=== PATIENT | female | born 2005 | race Caucasian/White ===

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

== ENCOUNTER 2024-02-19 01:23 | Outpatient (CLI) | payer BC, SELFPAY ==
--- OUTSIDE RECORDS SUMMARY | 2024-02-19 01:35 | XMS_ITS | Referral Summary ---
Author Organization [facility] Address [address] [place] [address] Care Team Providers Care Collar Band Creaser Name Role Phone Janet Barillas MD Primary Care Provide r Encounters Date Type Department Care Team Description 12/03/2023 Lab Requisition [facility] Pathology & Laboratory Medicine - [address] [address] Outr Resulting Lab, Provider from Last 3 Months Allergies No known active allergies Medications No known medications Social History Tobacco Use Types Packs/Day Years Used Date Smoking Tobacco: Never Assessed Sex and Gender Information Value Date Recorded Sex Assigned at Not on file Gender Identity Not on file Sexual Orientation Not on file Last Filed Vital Signs Vital Sign Reading Time Taken Comments Blood Pressure - - Pulse - - Temperature - - Respiratory Rate 14 07/30/20122101 EDT Oxygen Saturation 99% 07/30/20122101 EDT Inhaled Oxygen Concentration - - Weight 27.2 kg (60 lb) 07/30/20122101 EDT Height - - Body Mass Index - - Plan of Treatment Not on file Procedures Procedure Name Priority Date/Time Associated Diagnosis Comments QUANTIFERON INTERPRETATION (PERFORMABLE) Today 12/02/2023 15:30 EDT QUANTIFERON MITOGEN (PERFORMABLE) Today 12/02/2023 15:30 EDT QUANTIFERON TB2 (PERFORMABLE) Today 12/02/2023 15:30 EDT QUANTIFERON TB1 (PERFORMABLE) Today 12/02/2023 15:30 EDT QUANTIFERON NIL (PERFORMABLE) Today 12/02/2023 15:30 EDT QUANTIFERON TB GOLD PLUS Routine 12/02/2023 15:30 EDT from Last 3 Months Results * QUANTIFERON MITOGEN (PERFORMABLE) (12/02/2023 15:30 EDT) Blood VENOUS BLOOD / Unknown 12/02/2023 15:30 EDT 12/03/2023 19:39 EDT Provider Outr Resulting Lab IMMUNOLOGY A ND SEROLOGY ORDERABLES Performing Organization Address [facility] Co de Phone Number [facility] [address] [place], [place] [phone] * QUANTIFERON TB2 (PERFORMABLE) (12/02/2023 15:30 EDT) Blood VENOUS BLOOD / Unknown 12/02/2023 15:30 EDT 12/03/2023 19:39 EDT Provider Outr Resulting Lab IMMUNOLOGY A ND SEROLOGY ORDERABLES Performing Organization Address [facility] Co de Phone Number [facility] [address] [place] [phone] * QUANTIFERON TB1 (PERFORMABLE) (12/02/2023 15:30 EDT) Blood VENOUS BLOOD / Unknown 12/02/2023 15:30 EDT 12/03/2023 19:39 EDT Provider Outr Resulting Lab IMMUNOLOGY A ND SEROLOGY ORDERABLES Performing Organization Address [facility] de Phone Number [facility] [address] [place] [phone] * QUANTIFERON NIL (PERFORMABLE) (12/02/2023 15:30 EDT) Blood VENOUS BLOOD / Unknown 12/02/2023 15:30 EDT 12/03/2023 19:39 EDT Provider Outr Resulting Lab IMMUNOLOGY A ND SEROLOGY ORDERABLES Performing Organization Address [facility] de Phone Number [facility] [address] [place], [place] [phone] * (ABNORMAL) QUANTIFERON INTERPRETATION (PERFORMABLE) (12/02/2023 15:30 EDT) Quantiferon Interpretation Positive( A) Negative 12/04/2023 12:44 EDT [facility] Comment:Interferon gamma res ponse to M. tuberculosis antigens detected, suggesting infection with M. tuberculosis. Positive results in patients at low-risk for tuberculosis should be interpreted with caution and repeat testing on a new sample should be considered. False positive results may occur in patients with prior infection with M. marinum, M. szulgai, or M. kansasii. TB1 Ag minus Nil 0.43 IU/ml 12/04/19 12:44 EDT [facility] TB2 Ag minus Nil 0.34 IU/mL 12/04/19 12:44 EDT [facility] Blood VENOUS BLOOD / Unknown 12/02/2023 15:30 EDT 12/04/2023 11:31 EDT Provider Outr Resulting Lab IMMUNOLOGY A ND SEROLOGY ORDERABLES [facility] [address] [place] [address] from Last 3 Months Care Teams Collar Band Creaser Relationship Specialty Start Date End Date Janet Barillas MD [address] [place] [phone] PCP - General 07/30/12
--- OUTSIDE RECORDS SUMMARY | 2024-02-19 01:35 | XMS_ITS | Encounter Summary ---
Author Organization [facility] Address [address] [place] [address] Care Team Providers Care Management Trainee Marketing Name Role Phone Janet Barillas MD Primary Care Provide r Reason for Visit * Reason Comments Laceration laceration to inferi or base of right fourth toe, bleeding controlled. Also superficial avulsion distal to laceration. Does not appear to be full thickness. Will probably need repair. Injury secondary to kicking door. Toe not grossly deformed or swollen. A&O. Respirations unlabored. Skin warm & dry. NAD. Encounter Details Date Type Department Care Team (Late st Contact Info) Description 07/30/2012 20:56 EDT - 07/30/2012 23:34 EDT Emergency [facility] Emergency Department - [address] [id number] Kelsey Brooke PA-C [address] [facility], Level 1 [place] [address] Emergency, MD Janusz Laceration of fourth toe of right foot (Primary Dx) Discharge Disposition: Home or Self Care Social History Tobacco Use Types Packs/Day Years Used Date Smoking Tobacco: Never Assessed Sex and Gender Information Value Date Recorded Sex Assigned at Not on file Gender Identity Not on file Sexual Orientation Not on file documented as of this encounter Last Filed Vital Signs Vital Sign Reading Time Taken Comments Blood Pressure - - Pulse - - Temperature - - Respiratory Rate 14 07/30/2012 2102 EDT Oxygen Saturation 99% 07/30/2012 210 EDT Inhaled Oxygen Concentration - - Weight 27.2 kg (60 lb) 07/30/2012 210 EDT Height - - Body Mass Index - - documented in this encounter Discharge Instructions * Discharge Instructions* Kelsey Brooke PA - 07/30/2012 23:24 EDT 5 sutures to be removed in 7-10 days Wound care instructions given Tylenol for pain as needed Watch area for redness, swelling, drainage * Attachments The following attachments cannot be sent through Care Everywhere. * LACERATION: AFTER YOUR CHILD'S VISIT TO THE EMERGENCY ROOM (TURKISH) * CARE OF CLOSED WOUNDS: AFTER YOUR CHILD'S VISIT (TURKISH) documented in this encounter Discharge Disposition Disposition Code Departure Means Destination Home or Self Care Walk-out documented in this encounter ED Notes * Reynold Apple RN - 07/30/2012 4953 EDT Pt d/c ambulatory with a normal gait and in NAD. Pt d/c with family. Pt provided with instructions.Resp unlabored. Skin warm and dry. Pt AO. Patients family asked to keep an eye for signs of infection and to f/u with pcp for suture removal * Reynold Apple RN - 07/30/2012 2298 EDT Patient to X ray * Kelsey Brooke PA - 07/30/20125 EDTAssociated Order(s): LACERATION REPAIR Images from the original note were not included. DOS: 07/30/2012 Chief Complaint Patient presents with ??? Laceration laceration to inferior base of right fourth toe, bleeding controlled. Also superficial avulsion distal to laceration. Does not appear to be full thickness. Will probably need repair. Injury secondaryto kicking door. Toe not grossly deformed or swollen. A&O. Respirations unlabored. Skin warm & dry. NAD. The patient is a 7 y.o. female who presents today with Laceration HPI Comments: 7 y/o female pt here with laceration to 4th toe, plantar aspect. Pt with 2/10 for pain. Per pt was playing with door with sister and got her toe caught under door. Pt denies right anklepain. Bleeding is controlled upon arrival. The history is provided by the patient. Laceration Review of Systems Constitutional: Negative for activity change. Musculoskeletal: Right 4 th toe injury Skin: Positive for wound. Laceration to right 4 th toe Neurological: Negative for numbness. No past medical history on file. No past surgical history on file. No Known Allergies History Substance Use Topics ??? Smoking status: Not on file ??? Smokeless tobacco: Not on file ??? Alcohol Use: Not on file No family history on file. Vital Signs Heart Rate: 94 BPM Resp: 14 SpO2: 99 % Physical Exam Nursing note and vitals reviewed. Constitutional: She appears well-developed. She is active. Eyes: Pupils are equal, round, and reactive to light. Neck: Normal range of motion. Musculoskeletal: Right ankle: Normal. Feet: Neurological: She is alert. Skin: Skin is warm. Radiology orders: TOES 2 OR MORE VIEWS TOES 2 OR MORE VIEWS Final result not shown here.: Review of x-ray by me no acute fracture seen Laceration Date/Time: 07/30/2012 23:14 Performed by: KELSEY BROOKE Authorized by: KELSEY BROOKE Consent: Verbal consent obtained. Risks and benefits: risks, benefits and alternatives were discussed Consent given by: patient Patient understanding: patient states understanding of the procedure being performed Patient identity confirmed: verbally with patient Time out: Immediately prior to procedure a time out was called to verify the correct patient, procedure, equipment, health support specialist and site/side marked as required. Body area: lower extremity Location details: right fourth toe Laceration length: 0.8 cm Foreign bodies: no foreign bodies Tendon involvement: none Nerve involvement: none Vascular damage: no Anesthesia: local infiltration Local anesthetic: lidocaine 1% without epinephrine Anesthetic total: 2 ml Patient sedated: no Preparation: Patient was prepped and draped in the usual sterile fashion. Irrigation solution: saline Irrigation method: jet lavage Amount of cleaning: standard Debridement: none Degree of undermining: none Skin closure: 5-0 Prolene Number of sutures: 5 Technique: simple Approximation: close Approximation difficulty: simple Dressing: antibiotic ointment Patient tolerance: Patient tolerated the procedure well with no immediate complications. ED Course: A medical screening exam was performed. Pt tolerated treatment well. Disposition: Discharged The patient's pain was managed to an adequate level weighing risk vs. benefit of further medications. Upon departure from the Emergency Department, the patient's pain was 2 on a zero to ten scale. Condition at departure from the Emergency Department: Improved Discharge Prescriptions No Discharge Prescriptions for this patient MDM Number of Diagnoses or Management Options Laceration of fourth toe of right foot: Diagnosis management comments: Right 4th toe fracture, laceration, injury 4 Amount and/or Complexity of Data Reviewed Tests in the radiology section of CPT??: ordered and reviewed Review and summarize past medical records: yes Final diagnoses: Laceration of fourth toe of right foot PCP: MD Aníbal Mcclain 08/11/2012 15:47 * Asif Leiva RN - 07/30/2012 210 EDT Chief Complaint Patient presents with ??? Laceration laceration to inferior base of right fourth toe, bleeding controlled. Also superficial avulsion distal to laceration. Does not appear to be full thickness. Will probably need repair. Injury secondaryto kicking door. Toe not grossly deformed or swollen. A&O. Respirations unlabored. Skin warm & dry. NAD. documented in this encounter Miscellaneous Notes * Scanned Note-Null - [employer] NETWORK ANALYST, SCAN 2 - 08/02/2012 0954 EDT * Scanned Note-Null - [employer] NETWORK ANALYST, SCAN 2 - 07/31/2012 0006 EDT documented in this encounter Plan of Treatment Not on file documented as of this encounter Procedures Procedure Name Priority Date/Time Associated Diagnosis Comments LACERATION REPAIR Routine 08/11/2012 15: 47 EDT TOES 2 OR MORE VIEWS STAT 07/30/2012 22:33 EDT documented in this encounter Results * LACERATION REPAIR (08/11/2012 15:47 EDT) Narrative [facility] EKG - 08/11/2012 15:47 EDT Kelsey Brooke PA ? 08/11/2012 15:47 DOS: 07/30/2012 Chief Complaint Patient presents with ? ? Laceration ??laceration to inferior base of right fourth toe, bleeding controlled. ??Also superficial avulsion distal to laceration. ?? Does not appear to be full thickness. ??Will probably need repair. Injury secondary to kicking door. ??Toe not grossly deformed or swollen. ??A&O. Respirations unlabored. Skin warm & dry. NAD. The patient is a 7 y.o. female who presents today with Laceration HPI Comments: 7 y/o female pt here with laceration to 4th toe, plantar aspect. ??Pt with 2/10 for pain. ??Per pt was playing with door with sister and got her toe caught under door. ??Pt denies right ankle pain. ??Bleeding is controlled upon arrival. The history is provided by the patient. Laceration Review of Systems Constitutional: Negative for activity change. Musculoskeletal: ? Right 4 th toe injury Skin: Positive for wound. ? Laceration to right 4 th toe Neurological: Negative for numbness. No past medical history on file. No past surgical history on file. No Known Allergies History Substance Use Topics ? ? Smoking status: Not on file ? ? Smokeless tobacco: Not on file ? ? Alcohol Use: Not on file No family history on file. Vital Signs Heart Rate: 94 BPM Resp: 14 SpO2: 99 % Physical Exam Nursing note and vitals reviewed. Constitutional: She appears well-developed. She is active. Eyes: Pupils are equal, round, and reactive to light. Neck: Normal range of motion. Musculoskeletal: ? Right ankle: Normal. ? Feet: Neurological: She is alert. Skin: Skin is warm. Radiology orders: TOES 2 OR MORE VIEWS TOES 2 OR MORE VIEWS Final result not shown here.: ? Review of x-ray by me no acute fracture seen Laceration Date/Time: 07/30/2012 23:14 Performed by: KELSEY BROOKE Authorized by: KELSEY BROOKE Consent: Verbal consent obtained. Risks and benefits: risks, benefits and alternatives were discussed Consent given by: patient Patient understanding: patient states understanding of the procedure being performed Patient identity confirmed: verbally with patient Time out: Immediately prior to procedure a time out was called to verify the correct patient, procedure, equipment, health support specialist and site/side marked as required. Body area: lower extremity Location details: right fourth toe Laceration length: 0.8 cm Foreign bodies: no foreign bodies Tendon involvement: none Nerve involvement: none Vascular damage: no Anesthesia: local infiltration Local anesthetic: lidocaine 1% without epinephrine Anesthetic total: 2 ml Patient sedated: no Preparation: Patient was prepped and draped in the usual sterile fashion. Irrigation solution: saline Irrigation method: jet lavage Amount of cleaning: standard Debridement: none Degree of undermining: none Skin closure: 5-0 Prolene Number of sutures: 5 Technique: simple Approximation: close Approximation difficulty: simple Dressing: antibiotic ointment Patient tolerance: Patient tolerated the procedure well with no immediate complications. ED Course: ?? A medical screening exam was performed. Pt tolerated treatment well. Disposition: Discharged The patient's pain was managed to an adequate level weighing risk vs. benefit of further medications. Upon departure from the Emergency Department, the patient's pain was 2 on a zero to ten scale. Condition at departure from the Emergency Department: Improved Discharge Prescriptions No Discharge Prescriptions for this patient MDM Number of Diagnoses or Management Options Laceration of fourth toe of right foot: Diagnosis management comments: Right 4th toe fracture, laceration, injury 4 Amount and/or Complexity of Data Reviewed Tests in the radiology section of CPT??: ordered and reviewed Review and summarize past medical records: yes Final diagnoses: Laceration of fourth toe of right foot PCP: ??MD Aníbal Mcclain ?? 08/11/2012 15:47 Procedure Note Kelsey Brooke, PA - 07/30/2012 22:25 EDT Images from the original note were not included. DOS: 07/30/2012 Chief Complaint Patient presents with ? ? Laceration laceration to inferior base of right fourth toe, bleeding controlled.Also superficial avulsion distal to laceration. Does not appear to befull thickness. Will probably need repair. Injury secondary to kickingdoor. Toe not grossly deformed or swollen. A&O. Respirations unlabored.Skin warm & dry. NAD. The patient is a 7 y.o. female who presents today with Laceration HPI Comments: 7 y/o female pt here with laceration to 4th toe, plantaraspect. Pt with 2/10 for pain. Per pt was playing with door with sisterand got her toe caught under door. Pt denies right ankle pain. Bleedingis controlled upon arrival. The history is provided by the patient. Laceration Review of Systems Constitutional: Negative for activity change. Musculoskeletal: Right 4 th toe injury Skin: Positive for wound. Laceration to right 4 th toe Neurological: Negative for numbness. No past medical history on file. No past surgical history on file. No Known Allergies History Substance Use Topics ? ? Smoking status: Not on file ? ? Smokeless tobacco: Not on file ? ? Alcohol Use: Not on file No family history on file. Vital Signs Heart Rate: 94 BPM Resp: 14 SpO2: 99 % Physical Exam Nursing note and vitals reviewed. Constitutional: She appears well-developed. She is active. Eyes: Pupils are equal, round, and reactive to light. Neck: Normal range of motion. Musculoskeletal: Right ankle: Normal. Feet: Neurological: She is alert. Skin: Skin is warm. Radiology orders: TOES 2 OR MORE VIEWS TOES 2 OR MORE VIEWS Final result not shown here.: Review of x-ray by me no acute fracture seen Laceration Date/Time: 07/30/2012 23:14 Performed by: KELSEY BROOKE Authorized by: KELSEY BROOKE Consent: Verbal consent obtained. Risks and benefits: risks, benefits and alternatives were discussed Consent given by: patient Patient understanding: patient states understanding of the procedure beingperformed Patient identity confirmed: verbally with patient Time out: Immediately prior to procedure a time out was called to verifythe correct patient, procedure, equipment, health support specialist and site/sidemarked as required. Body area: lower extremity Location details: right fourth toe Laceration length: 0.8 cm Foreign bodies: no foreign bodies Tendon involvement: none Nerve involvement: none Vascular damage: no Anesthesia: local infiltration Local anesthetic: lidocaine 1% without epinephrine Anesthetic total: 2 ml Patient sedated: no Preparation: Patient was prepped and draped in the usual sterilefashion. Irrigation solution: saline Irrigation method: jet lavage Amount of cleaning: standard Debridement: none Degree of undermining: none Skin closure: 5-0 Prolene Number of sutures: 5 Technique: simple Approximation: close Approximation difficulty: simple Dressing: antibiotic ointment Patient tolerance: Patient tolerated the procedure well with no immediatecomplications. ED Course: A medical screening exam was performed. Pt tolerated treatment well. Disposition: Discharged The patient's pain was managed to an adequate level weighing risk vs.benefit of further medications. Upon departure from the EmergencyDepartment, the patient's pain was 2 on a zero to ten scale. Condition at departure from the Emergency Department: Improved Discharge Prescriptions No Discharge Prescriptions for this patient MDM Number of Diagnoses or Management Options Laceration of fourth toe of right foot: Diagnosis management comments: Right 4th toe fracture, laceration, injury 4 Amount and/or Complexity of Data Reviewed Tests in the radiology section of CPT??: ordered and reviewed Review and summarize past medical records: yes Final diagnoses: Laceration of fourth toe of right foot PCP: MD Aníbal Mcclain 08/11/2012 15:47 Kelsey Brooke PA-C PROCEDURE/MINOR SURG ICAL ORDERABLES [facility] EKG * TOES 2 OR MORE VIEWS (07/30/2012 22:33 EDT) Anatomical Region Laterality Modality Other 07/30/2012 22:3 3 EDT 07/31/2012 9:33 EDT Narrative 07/31/2012 9:33 EDT TOES 2 OR MORE VIEWS ??Jul 30, 2012 10:33:00 PM Signs and Symptoms/Comments: ??toe injury and pain Comparison: None Findings: Three views of the right 4th toe demonstrate soft tissue swelling, but no fracture is identified. The alignment and mineralization are normal in this skeletally immature patient. No radiopaque foreign body identified. The findings were discussed by Dr. Jani Campos with Dr. EDWARDO DUVALL shortly after completion of the study. I have personally reviewed the images and the above interpretation and agree with the findings. Procedure Note Daily, Jani Betancourt MD - 07/31/2012 TOES 2 OR MORE VIEWS Jul 30, 2012 10:33:00 PM Signs and Symptoms/Comments: toe injury and pain Comparison: None Findings: Three views of the right 4th toe demonstrate soft tissue swelling, but no fracture is identified. The alignment and mineralization are normal in this skeletally immature patient. No radiopaque foreign body identified. The findings were discussed by Dr. Jani Delgado Daily with Dr. EDWARDO DUVALL shortly after completion of the study. I have personally reviewed the images and the above interpretation and agree with the findings. Kelsey Brooke PA-C IMG DIAGNOSTIC IMAGI NG ORDERABLES documented in this encounter Visit Diagnoses Diagnosis Laceration of fourth toe of right foot- Primary Open wound of toe(s), without mention of complication documented in this encounter Administered Medications Inactive Administered Medications - up to 3 most recent administrations Medication Order MAR Action Action Date Dose Rate Site acetaminophen (TYLENOL) solution unit dose cup 405 mg 405 mg (15 mg/kg ? 27.2 kg), oral, NOW X1, 1 dose, On Thu07/30/12 at 2245, STAT Given 07/30/2012 22:50 EDT 405 mg documented in this encounter Active and Recently Administered Medications Times are shown in EDT. Scheduled Medication Order 07/28/2012 07/29/2012 07/30/2012 acetaminophen (TYLENOL) solution unit dose cup 405 mg (COMPLETED) 405 mg (15 mg/kg ? 27.2 kg), oral, NOW X1, 1 dose, On Thu07/30/12 at 2245, STAT 2250 (Given - Provid er: Reynold Apple RN) documented in this encounter Orders Medications Ordered That Santhosh ht Not Have Been Administered Count Last Ordered Date First Ordered Date acetaminophen (TYLENOL) solu tion unit dose cup 405 mg 1 07/30/2012 documented in this encounter Care Teams Management Trainee Marketing Relationship Specialty Start Date End Date Janet Barillas MD [address] [place] [phone] PCP - General 07/30/12 documented as of this encounter
--- OUTSIDE RECORDS SUMMARY | 2024-02-19 01:35 | XMS_ITS | Clinical Summary ---
Author Organization [facility] Address [address] [place] [address] Care Team Providers Care Hydraulic Oil Tool Operator Name Role Phone Janet Bairllas MD Primary Care Provide r Allergies No known active allergies Medications No known medications Encounters Date Type Department Care Team Description 12/03/2023 Lab Requisition [facility] Pathology & Laboratory Medicine - [address] [address] Outr Resulting Lab, Provider from Last 3 Months Social History Tobacco Use Types Packs/Day Years Used Date Smoking Tobacco: Never Assessed Sex and Gender Information Value Date Recorded Sex Assigned at Not on file Gender Identity Not on file Sexual Orientation Not on file Growth Chart Information Age Height Weight Xylgfc-kxr-neub th Percentile BMI Percentile Head Circum Head Circum Percentile Date 7 years 27.2 kg (60 lb) 2012 Last Filed Vital Signs Vital Sign Reading Time Taken Comments Blood Pressure - - Pulse - - Temperature - - Respiratory Rate 14 07/30/2012 2102 EDT Oxygen Saturation 99% 07/30/20122101 EDT Inhaled Oxygen Concentration - - Weight 27.2 kg (60 lb) 07/30/2012 2102 EDT Height - - Body Mass Index - - Plan of Treatment Health Maintenance Due Date Last Done Comments Hepatitis C Screen 2004 COVID-19 Vaccine (2022-24 season) 2022 Hepatitis B Vaccine (1 of 3 - 19+ 3-dose series) 02/21 Procedures Procedure Name Priority Date/Time Associated Diagnosis [...] A ND SEROLOGY ORDERABLES Performing Organization Address [facility] Co de Phone Number [facility] [address] [place] [phone] * QUANTIFERON TB2 (PERFORMABLE) (12/02/2023 15:30 EDT) Blood VENOUS BLOOD / Unknown 12/02/2023 15:30 EDT 12/03/2023 19:39 EDT Provider Outr Resulting Lab IMMUNOLOGY A ND SEROLOGY ORDERABLES Performing Organization Address [facility] Co de Phone Number [facility] [address] [place] [phone] * QUANTIFERON TB1 (PERFORMABLE) (12/02/2023 15:30 EDT) Blood VENOUS BLOOD / Unknown 12/02/2023 15:30 EDT 12/03/2023 19:39 EDT Provider Outr Resulting Lab IMMUNOLOGY A ND SEROLOGY ORDERABLES Performing Organization Address [facility]/ZIP Co de Phone Number [facility] [address] [place] [phone] * QUANTIFERON NIL (PERFORMABLE) (12/02/2023 15:30 EDT) Blood VENOUS BLOOD / Unknown 12/02/2023 15:30 EDT 12/03/2023 19:39 EDT Provider Outr Resulting Lab IMMUNOLOGY A ND SEROLOGY ORDERABLES Performing Organization Address [facility] Co de Phone Number [facility] [address] [place], [place] [phone] * (ABNORMAL) QUANTIFERON INTERPRETATION (PERFORMABLE) (12/02/2023 15:30 EDT) Quantiferon Interpretation Positive( A) Negative 12/04/2023 12:44 EDT [facility] Comment:Interferon gamma res ponse [...] minus Nil 0.43 IU/ml 12/04/19 12:44 EDT [facility] TB2 Ag minus Nil 0.34 IU/mL 12/04/19 12:44 EDT [facility] Blood VENOUS BLOOD / Unknown 12/02/2023 15:30 EDT 12/04/2023 11:31 EDT Provider Outr Resulting Lab IMMUNOLOGY A ND SEROLOGY ORDERABLES Performing Organization Address City/[facility]/ZIP Co de Phone Number [facility] [address] [place] [phone] from Last 3 Months Care Teams Hydraulic Oil Tool Operator Relationship Specialty Start Date End Date Janet Barillas MD [address] [place] [phone] PCP - General 07/30/12
--- OUTSIDE RECORDS SUMMARY | 2024-02-19 01:35 | XMS_ITS | Encounter Summary ---
Author Organization [facility] Address [address] [place] [address] Care Team Providers Care Livestock Showman Name Role Phone Janet Barillas MD Primary Care Provide r Encounter Details Date Type Department Care Team (Late st Contact Info) Description 11/13/2021 Lab Requisition [facility] Pathology & Laboratory Medicine - [facility] [address] [place] [address] Outr Resulting Lab, Provider Social History Tobacco Use Types Packs/Day Years Used Date Smoking Tobacco: Never Assessed Sex and Gender Information Value Date Recorded Sex Assigned at Not on file Gender Identity Not on file Sexual Orientation Not on file documented as of this encounter Plan of Treatment Not on file documented as of this encounter Procedures Procedure Name Priority Date/Time Associated Diagnosis Comments CHLAMYDIA/N. GONORRHOEAE AMPLIFIED NUCLEIC ACID Routine 11/13/2021 10:15 EDT documented in this encounter Results * CHLAMYDIA/N. GONORRHOEAE AMPLIFIED RNA (11/13/2021 10:15 EDT) Neisseria gonorrhoeae Result Negative Negative 11/14/2021 21:24 EDT [facility] Chlamydia trachomatis Result Negative Negative 11/14/2021 21:24 EDT [facility] Urine URINE / Unknown 11/13/2021 1 0:15 EDT 11/13/2021 21:32 EDT Narrative [facility] - 11/14/2021 21:24 EDT A first catch urine specimen is acceptable for detection of Gonorrhea and Chlamydia, but might detect up to 10% fewer infections when compared with vaginal and endocervical swab samples. Provider Outr Resulting Lab MICROBIOLOGY - GENERAL ORDERABLES [facility] [address] [place] [address] documented in this encounter Visit Diagnoses Not on filedocumented in this encounter Care Teams Livestock Showman Relationship Specialty Start Date End Date Janet Barillas MD [address] [place] [phone] PCP - General 07/30/12 documented as of this encounter
--- OUTSIDE RECORDS SUMMARY | 2024-02-19 01:35 | XMS_ITS | Encounter Summary ---
Author Organization [facility] Address [address] [place] [address] Care Team Providers Care Statistics Tutor Name Role Phone Janet Barillas MD Primary Care Provide r Encounter Details Date Type Department Care Team (Late st Contact Info) Description 12/03/2023 Lab Requisition [facility] Laboratory Medicine - [facility] [address] [place] [address] Outr Resulting Lab, Provider Social History Tobacco [...] Name Priority Date/Time Associated Diagnosis Comments QUANTIFERON MITOGEN (PERFORMABLE) Today 12/02/2023 15:30 EDT QUANTIFERON TB2 (PERFORMABLE) Today 12/02/2023 15:30 EDT QUANTIFERON TB1 (PERFORMABLE) Today 12/02/2023 15:30 EDT QUANTIFERON NIL (PERFORMABLE) Today 12/02/2023 15:30 EDT QUANTIFERON INTERPRETATION (PERFORMABLE) Today 12/02/2023 15:30 EDT QUANTIFERON TB GOLD PLUS Routine 12/02/2023 15:30 EDT documented in this encounter Results * (ABNORMAL) QUANTIFERON INTERPRETATION (PERFORMABLE) (12/02/2023 15:30 EDT) Quantiferon Interpretation Positive( A) Negative 12/04/2023 12:44 EDT [facility] Comment:Interferon gamma res ponse to [...] minus Nil 0.43 IU/ml 12/04/19 12:44 EDT [facility] TB2 Ag minus Nil 0.34 IU/mL 12/04/19 12:44 EDT [facility] Blood VENOUS BLOOD / Unknown 12/02/2023 15:30 EDT 12/04/2023 11:31 EDT Provider Outr Resulting Lab IMMUNOLOGY A ND SEROLOGY ORDERABLES Performing Organization Address [facility] Co de Phone Number [facility] [address] [place] [phone] * QUANTIFERON MITOGEN (PERFORMABLE) (12/02/2023 15:30 EDT) Blood VENOUS BLOOD / Unknown 12/02/2023 15:30 EDT 12/03/2023 19:39 EDT Provider Outr Resulting Lab IMMUNOLOGY A ND SEROLOGY ORDERABLES Performing Organization Address [facility] Co de Phone Number [facility] [address] [place] [phone] * QUANTIFERON TB2 (PERFORMABLE) (12/02/2023 15:30 EDT) Blood VENOUS BLOOD / Unknown 12/02/2023 15:30 EDT 12/03/2023 19:39 EDT Provider Outr Resulting Lab IMMUNOLOGY A ND SEROLOGY ORDERABLES Performing Organization Address [facility] Co de Phone Number [facility] [address] [place] [phone] * QUANTIFERON TB1 (PERFORMABLE) (12/02/2023 15:30 EDT) Blood VENOUS BLOOD / Unknown 12/02/2023 15:30 EDT 12/03/2023 19:39 EDT Provider Outr Resulting Lab IMMUNOLOGY A ND SEROLOGY ORDERABLES Performing Organization Address [facility] de Phone Number [facility] [address], [place] [phone] * QUANTIFERON NIL (PERFORMABLE) (12/02/2023 15:30 EDT) Blood VENOUS BLOOD / Unknown 12/02/2023 15:30 EDT 12/03/2023 19:39 EDT Provider Outr Resulting Lab IMMUNOLOGY A ND SEROLOGY ORDERABLES Performing Organization Address [facility] Co de Phone Number [facility] [address], [place] [phone] documented in this encounter Visit Diagnoses Not on filedocumented in this encounter Care Teams Statistics Tutor Relationship Specialty Start Date End Date Janet Barillas MD [address] [place] [phone] PCP - General 07/30/12 documented as of this encounter
[2024-02-23 12:09] LABS: TB Interpretation Positive (Negative); TB1 Ag minus Nil 0.69 IU/mL; TB2 Ag minus Nil 0.66 IU/mL
== END 2024-02-19 01:24 | disposition home or self-care (01) ==
PROVIDERS: PCP Family Medicine; Visit Provider Student in an Organized Health Care Education/Training Program
DX: R76.12 Nonspecific reaction to cell mediated immunity measurement of gamma interferon antigen response without active tuberculosis (principal)
CPT/HCPCS: 36415; 86480

== ENCOUNTER 2024-11-15 17:29 | Outpatient (CLI) | payer BC, SELFPAY ==
--- NOTE | 2024-11-15 18:05 | DI.RAD_ITS ---
Exam(s) XR HIP RT AP LAT ONLY EXAM: XR HIP RT AP LAT ONLY CLINICAL HISTORY: hip pain. TECHNIQUE: 2D digital imaging was performed. COMPARISON: No exams were available for comparison FINDINGS: 3 views IMPRESSION: DATA REPOSITORY: RADIATION DOSE DELIVERED:
--- NOTE | 2024-11-15 18:38 | DI.VRAD_ITS ---
PROCEDURE INFORMATION: Exam: XR Right Hip Exam date and time: 11/15/2024 6:08 PM Age: 19 years old Clinical indication: Hip pain; Right hip TECHNIQUE: Imaging protocol: Radiologic exam of the right hip. Views: 2 or 3 views hip with pelvis when performed. COMPARISON: MR LOWER JOINT RT WO 07/17/2021 11:05 AM FINDINGS: Bones/joints: Coned-down AP and lateral views of the right hip joint are submitted. No acute fracture or dislocation is seen. Mild degenerative changes are noted at the pubic symphysis. Soft tissues: No gross focal soft tissue abnormality is seen. IMPRESSION: No acute fracture or dislocation seen at the right hip joint. Dictated and Authenticated by: Sam Huntley MD. Orderin Tasneem Brooks MD
== END 2024-11-15 17:49 ==
PROVIDERS: PCP Family Medicine; Visit Provider Registered Nurse
DX: M25.551 Pain in right hip (principal)
CPT/HCPCS: 73502